=== PATIENT | female | born 1995 | race Two or more races ===

== ENCOUNTER 2022-06-04 14:11 | Emergency (ER) | payer OTHER ==
[~2022-06-04] VITALS: Ht 154.9 cm; Wt 49.9 kg
[2022-06-04] MEDS ORDERED: AMOX-CLAV 875-1 EAC1 PO (15:36)
== END 2022-06-04 15:53 | disposition home or self-care (01) ==
LOC: ER 14:11
DX: J02.9 Acute pharyngitis, unspecified (principal)